=== PATIENT | female | born 2000 | race Caucasian/White ===

== ENCOUNTER 2020-03-02 13:10 | Emergency (ER) | payer OTHER ==
[2020-03-02] MEDS ORDERED: METOCLOPRAMIDE HCL INJ/PF 10 MG/2 ML SDV IV ONE (13:21)
[2020-03-02] MEDS ORDERED: NORMAL SALINE 1000 ML 1,000 ML IV ONE ×2 (13:21→15:30)
[2020-03-02] MEDS ORDERED: DIPHENHYDRAMINE HCL 50 MG/ML VIAL IV ONE (13:21)
--- NOTE | 2020-03-02 13:23 | ER Document Report ---
ED Medical Screen (RME) - General Stated Complaint: ABDOMINAL PAIN, VOMITING Time Seen by Provider: 03/02/20 13:18 Mode of Arrival: Ambulatory Information source: Patient Notes: Patient presents . Patient suspects that she may be about 11 to 13 weeks although has not had an ultrasound to confirm the . Patient reports having morning sickness with nausea and vomiting that is worse over the past 3 days. Patient is vomited 4 times today. Patient does complain of epigastric tenderness as well as lower pelvic pain. Patient without any vaginal bleeding. I have greeted and performed a rapid initial assessment of this patient. A comprehensive ED assessment and evaluation of the patient, analysis of test results and completion of the medical decision making process will be conducted by additional ED providers. - Related Data Allergies/Adverse Reactions: morphine Allergy (Verified 03/02/20 13:21) Physical Exam - Vital signs Vitals: Temp Pulse Resp BP Pulse Ox 97.7 F 79 16 116/75 100 03/02/20 13:17 03/02/20 13:17 03/02/20 13:17 03/02/20 13:17 03/02/20 13:17 - Abdominal Tenderness: Tender - Epigastric, lower pelvic Course - Vital Signs Vital signs: Temp Pulse Resp BP Pulse Ox 97.7 F 79 16 116/75 100 03/02/20 13:17 03/02/20 13:17 03/02/20 13:17 03/02/20 13:17 03/02/20 13:17
[2020-03-02 14:20] LABS: ABSOLUTE LYMPHOCYTES (AUTO) 1.3 10^3/uL (0.5-4.7); ABSOLUTE MONOCYTES (AUTO) 0.5 10^3/uL (0.1-1.4); ABSOLUTE NEUT (AUTO) 8.4 10^3/uL (1.7-8.2); BASOPHILS % (AUTO) 0.2 % (0-2); EOSINOPHILS % (AUTO) 0.1 % (0-6); HEMATOCRIT 43.2 % (36.0-47.0); HEMOGLOBIN 15.2 g/dL (12.0-15.5); LYMPHOCYTES % (AUTO) 12.4 % (13-45); MEAN CORPUSCULAR HEMOGLOBIN 30.9 pg (27.0-33.4); MEAN CORPUSCULAR HGB CONC 35.2 g/dL (32.0-36.0); MEAN CORPUSCULAR VOLUME 88 fl (80-97); MONOCYTES % (AUTO) 4.5 % (3-13); PLATELET COUNT 175 10^3/uL (150-450); RED BLOOD COUNT 4.93 10^6/uL (3.72-5.28); RED CELL DISTRIBUTION WIDTH 12.4 % (11.5-14.0); SEGMENTED NEUTROPHILS % (AUTO) 82.8 % (42-78); TOTAL CELLS COUNTED % (AUTO) 100 %; WHITE BLOOD COUNT 10.2 10^3/uL (4.0-10.5)
[2020-03-02 14:38] LABS: APPEARANCE,URINE SLIGHTLY-CLOUDY; BILIRUBIN,URINE NEGATIVE (NEGATIVE); GLUCOSE, URINE NEGATIVE (NEGATIVE); KETONES,URINE 80 mg/dL (NEGATIVE); LEUKOCYTE ESTERASE,URINE NEGATIVE (NEGATIVE); NITRITE,URINE NEGATIVE (NEGATIVE); PROTEIN,URINE 30 mg/dL (NEGATIVE); URINE SPECIFIC GRAVITY 1.031
[2020-03-02 14:39] LABS: ALBUMIN 5.3 g/dL (3.5-5.0); ALKALINE PHOSPHATASE 65 U/L (38-126); ANION GAP 12 (5-19); ASPARTATE AMINO TRANSFERASE 21 U/L (14-36); BILIRUBIN,TOTAL 1.2 mg/dL (0.2-1.3); BLOOD UREA NITROGEN 9 mg/dL (7-20); CALCIUM 11.3 mg/dL (8.4-10.2); CARBON DIOXIDE 24 mmol/L (22-30); CHLORIDE 100 mmol/L (98-107); COLOR,URINE YELLOW; GLUCOSE 79 mg/dL (75-110); POTASSIUM 4.2 mmol/L (3.6-5.0); TOTAL PROTEIN 8.2 g/dL (6.3-8.2)
--- NOTE | 2020-03-02 14:49 | ER Document Report ---
ED General - General Chief Complaint: Nausea/Vomiting Stated Complaint: ABDOMINAL PAIN, VOMITING Time Seen by Provider: 03/02/20 13:18 Mode of Arrival: Ambulatory - [facility] Notes: 19-year-old female to the emergency department with complaints of nausea and vomiting that has progressively gotten worse for the past 3 weeks. She states that she thinks she is about 3 or 4 months . She is not having u ltrasound to confirm the . She states that she started to have morning sickness about 3 weeks ago and now she is progressed to not being able to eat or drink anything for the past 2 days. She states that she has a little bit of upper abdominal pain but denies any pelvic pain or vaginal bleeding. Denies any urinary symptoms. She denies any flank pain. She denies any fevers, chills, co ugh, chest pain, shortness of breath, exposure to anyone positive for COVID-19, loss of taste or smell. She has not seen an [facility]MING OPERATOR just yet. However she is going to go to a clinic in [place]. She is not taking a because they were making her sick. - Related Data Allergies/Adverse Reactions: morphine Allergy (Verified 03/02/20 13:21) Past Medical History - General Information source: Patient - Social History Smoking Status: Never Smoker Chew tobacco use (# tins/day): No Frequency of alcohol use: None Drug Abuse: None Family History: Reviewed & Not Pertinent Review of Systems - Review of Systems Constitutional: denies: Chills, Fever EENT: No symptoms reported Cardiovascular: denies: Chest pain, Palpitations, Heart racing, Orthopnea, Syncope, Dizziness, Lightheaded Respiratory: denies: Cough, Short of breath Gastrointestinal: See HPI, Abdominal pain, Nausea, Vomiting. denies: Diarrhea Genitourinary: denies: Burning, Dysuria, Frequency, Flank pain, Hematuria, Urgency Female Genitourinary: . denies: Vaginal bleeding Musculoskeletal: No symptoms reported Skin: No symptoms reported Hematologic/Lymphatic: No symptoms reported Neurological/Psychological: No symptoms reported -: Yes All other systems reviewed and negative Physical Exam - Vital signs Vitals: Temp Pulse Resp BP Pulse Ox 97.7 F 79 16 116/75 100 03/02/20 13:17 03/02/20 13:17 03/02/20 13:17 03/02/20 13:17 03/02/20 13:17 Interpretation: Normal Notes: PHYSICAL EXAMINATION: GENERAL: Well-appearing, well-nourished and in no acute distress. HEAD: Atraumatic, normocephalic. EYES: Pupils equal round and reactive to light, extraocular movements intact, sclera anicteric, conjunctiva are normal. ENT: nares patent, oropharynx clear without exudates. Moist mucous membranes. NECK: Normal range of motion, supple without lymphadenopathy LUNGS: Breath sounds clear to auscultation bilaterally and equal. No wheezes rales or rhonchi. HEART: Regular rate and rhythm without murmurs ABDOMEN: Soft, mild tenderness to palpation over the epigastrium, normoactive bowel sounds. No guarding, no rebound. No masses appreciated. No CVA tend erness EXTREMITIES: Normal range of motion, no pitting or edema. No cyanosis. NEUROLOGICAL: No focal neurological deficits. Moves all extremities spontaneously and on command. PSYCH: Normal mood, normal affect. SKIN: Warm, Dry, normal turgor, no rashes or lesions noted. Course - Re-evaluation Re-evalutation: 03/02/20 16:33 Patient is feeling a lot better after fluids and antiemetics. We will p.o. challenge her. If she does well will discharge home. Will send home with Diclegis. She is to return if she worsens. Also give her information for follow-up with [facility]. Noted ultrasound with intrauterine . 03/02/20 Tolerated PO challenge. Will discharge the patient home. Encouraged to return if worse. - Vital Signs Vital signs: Temp Pulse Resp BP Pulse Ox 97.7 F 79 16 116/75 100 03/02/20 13:17 03/02/20 13:17 03/02/20 13:17 03/02/20 13:17 03/02/20 13:17 - Laboratory Result Diagrams: 03/02/20 14:00 03/02/20 14:00 Laboratory results interpreted by me: 03/02/20 03/02/20 03/02/20 14:00 14:00 14:00 Lymph % (Auto) 12.4 L Absolute Neuts (auto) 8.4 H Seg Neutrophils % 82.8 H Sodium 136.3 L Calcium 11.3 H Albumin 5.3 H Beta HCG, Quant 327140.00 H Urine Protein 30 H Urine Ketones 80 H Urine Urobilinogen 2.0 H Urine Ascorbic Acid 40 H - Diagnostic Test Radiology reviewed: Image reviewed, Reports reviewed Discharge - Discharge Clinical Impression: Hyperemesis gravidarum, First trimester Condition: Stable Disposition: HOME, SELF-CARE Instructions: Hyperemesis Gravidarum (OM) Additional Instructions: Push fluids. [place] diet as tolerated. Take Diclegis for the nausea. Follow-up with [facility]ING OPERATOR without fail. Return if you have worsening symptoms such as intractable vomiting, vaginal bleeding, abdominal pain, or any other concerns. Prescriptions: Doxylamine Succinate/Vit B6 [Diclegis Dr 10-10 mg Tablet] 1 each PO BID #20 tablet. Referrals: ELANA VILLALTA MD [ACTIVE STAFF] - Follow up in 1 week
[2020-03-02] MEDS ORDERED: ONDANSETRON HCL INJ/PF 4 MG/2 ML SDV IV ONE (15:30)
[2020-03-02] MEDS ORDERED: FAMOTIDINE INJ/PF 20 MG/2 ML SDV IV ONE (15:30)
--- NOTE | 2020-03-02 16:24 | RADIOLOGY REPORT (SQ) ---
EXAM DESCRIPTION: U/S OB TRANSVAGINAL W/O DOP IMAGES COMPLETED DATE/TIME: 03/02/2020 4:04 pm REASON FOR STUDY: lower abd pain COMPARISON: None. TECHNIQUE: Transvaginal static and realtime grayscale images acquired of the pelvis. Additional stephanie cted spectral and color Doppler images recorded. All images stored on PACs. bHCG: Not available. CLINICAL DATES: 11 weeks 3 days LIMITATIONS: None. FINDINGS: FETUS: Single Living intrauterine . ULTRASOUND EGA: 8 weeks 6 days ULTRASOUND NICK: 10/06/2020 EFW: Not applicable less than 20 weeks. CRL: 2.2 cm FHR: 180 beats per minute. SURVEY: Too early to assess. AMNIOTIC FLUID: Adequate amount. PLACENTA: Not yet developed due to early gestation. SUBCHORIONIC BLEED: No SIZE OF BLEED: Not applicable. UTERUS: No masses. No anomalies. CERVICAL LENGTH: 4.4 cm Closed. RIGHT ADNEXA: Normal ovary with normal vascular flow. No adnexal free fluid. No adnexal masses. LEFT ADNEXA: Normal ovary with normal vascular flow. No adnexal free fluid. No adnexal masses. FREE FLUID: None. OTHER: No other significant finding. IMPRESSION: LIVING INTRAUTERINE . EGA 8 weeks 6 days Trimester of : First trimester - 0 to 13 weeks. TECHNICAL DOCUMENTATION: JOB ID: [id number] [employer]- All Rights Reserved rev Reading location - IP/workstation name: [email or web address]
[2020-03-02 16:56] VITALS: BP 111/61
== END 2020-03-02 16:56 | disposition home or self-care (01) ==
LOC: ER 13:10
DX: O21.0 Mild hyperemesis gravidarum (principal); R10.13 Epigastric pain; Z3A.11 11 weeks gestation of pregnancy
CPT/HCPCS: 99285; 96361; 96374; 96375; 86900; 86901; 36415; 84702; 83690; 85025; 80053; 81001; 76817; J1200; J2765; J2405; J7030; S0028